=== PATIENT | male | born 1955 | race Caucasian/White ===

== ENCOUNTER → 2016-06-22 | Outpatient (CLI) | payer OTHER ==
[~2016-06-22] VITALS: Ht 167.6 cm; Wt 103.9 kg
[~2016-06-22] MED LIST: ACTOS15 MG PO; ADULT LOW DOSE81 MG PO; ALAVERT10 MG PO; ALBUTEROL INH; ALEVE220 M1 PO; AMARYL2 M1 PO; AMARYL4 MG PO; AMLODIPINE BESY10 MG PO; ASPIRIN PO; AVELOX400 MG PO; BACLOFEN 10MG T10 MG PO; BACLOFEN20 MG PO; BACTRIM DS TAB1 EACH PO; BUPRENORPHINE HC2 MG SL; CARAFATE 1 GM TA1 G1 PO; CARVEDILOL12.5 MG PO; CARVEDILOL25 MG PO; CHERACOL COUGH120 ML PO; CHLORTHALIDONE25 MG PO; CLEOCIN HCL300 MG PO; CLONIDINE0.1; CLONIDINE0.1 PO; CO Q-10100 MG PO; COLACE100 MG; COLCRYS0.6 MG PO; COQ-10100 MG PO; COREG25 MG PO; COREG6.25 MG PO; COZAAR100 MG PO; DAPSONE PO; DAPSONE25 MG PO; DIABETA PO; DIOVAN160 MG PO; DOXYCYCLINE 10100 MG PO; FENTANYL PA12 MCG/HR TP; FENTANYL PA25 MCG/HR TP; FISH OIL 1,001000 MG PO; FLEXERIL PO; GEMFIBROZIL 60600 MG PO; GLUCOPHAGE1000 MG PO; GLYBURIDE; GLYBURIDE 2.52.5 M1 PO; GLYBURIDE 5 MG T5 M1 PO; HYDRALAZINE 2525 M1 PO; HYDRALAZINE 2525 MG PO; HYDROCODON-ACE1 EAC5; HYDROXYCHLOROQ200 M1 PO; IBUPROFEN 200200 M1 PO; IBUPROFEN 800800 M1 PO; IMDUR 60 MG TAB60 M1 PO; IMDUR 60 MG TAB60 MG PO; INDOMETHACIN 5050 M1 PO; INDOMETHACIN 5050 MG PO; IRON325 PO; ISOSORBIDE DN 110 M1 PO; JANUVIA100 MG PO; K-DUR 20 MEQ T20 MEQ PO; KAPVAY0.1 MG PO; KETOCONAZOLE60 GM TP; LASIX 20 MG TAB20 MG PO; LASIX 40 MG TAB40 M1 PO; LASIX 40 MG TAB40 M2 PO; LASIX 40 MG TAB40 MG PO; LIORESAL 10 MG10 MG PO; LIPITOR20 MG PO; LIPITOR40 MG PO; LOPID600 MG PO; LORTAB 5 MG/5001 TA1 PO; MAGOX 400400 MG PO; MEDROLDOSEPACK PO; METFORMIN PO; MOBIC15 MG PO; NEURONTIN 300300 M1 PO; NEURONTIN 300M300 M2 PO; NEURONTIN 400400 M1 PO; NEURONTIN 400M400 M2 PO; NEURONTIN600 MG PO; NEURONTIN800 MG PO; NITROGLYCERIN0.4 MG SUBLING; NITROSTAT0.4 MG SUBLING; NORCO 5-325 TA1 EACH PO; NORVASC10 MG PO; NOVOLIN 70100 UNIT/1 IJ; ONDANSETRON HCL4 M2 PO; OPANA ER15 M1 PO; OPANA10 MG PO; OXYCONTIN CR 1010 M1; PEPCID AC20 M1 PO; PEPCID20 MG PO; PERCOCET 5-3251 EACH PO; PERCOCET 7.5-31 EACH PO; PHENERGAN25 MG RE; PLAVIX 75 MG TA75 M1 PO; PLAVIX 75 MG TA75 MG PO; PLAVIX PO; POTASSIUM20 PO; PREDNISONE 5 MG5 M1 PO; PREDNISONE 5 MG5 MG PO; PROTONIX40 M1 PO; PROVENTIL HFA6.7 G1 INH; RED YEAST RICE600 M1 PO; ROBAXIN 750 MG750 M1; ROXICODONE5 M2 PO; ROXICODONE5 MG PO; SIMVASTATIN40 MG PO; TIZANIDINE HCL4 MG PO; TORSEMIDE20 MG PO; TRAMADOL 50 MG50 MG PO; ULORIC40 MG PO; VICTOZA0.6 MG/0.1; VITAMIN D1000 UNI1 PO; VITAMIN D2000 UNIT PO; ZOFRAN 4 MG ORAL4 M1 DIS; ZOFRAN4 MG PO
--- NOTE | ~2016-06-22 | HPC ---
[facility] [address] [place] [address] PAIN MANAGEMENT CONSULTATION Name: JANNY CHEUNG Room #: REG LEIA RodriguezGiuliaLatasha.#: [id number] Admission: 06/22/16 Attend Phys: Aleksey Fairchild DO Discharge: Date of : 53 Report #: [id number] THIS REPORT FOR: //name// CC: Aleksey Kennedy MD DATE OF SERVICE: 06/22/2016 REFERRING PHYSICIAN: Norma Kennedy MD CHIEF COMPLAINT: Low back pain and upper buttock pain. HISTORY OF PRESENT ILLNESS: As you know, the patient is a 61-year-old male followed by pain associates with longstanding low back pain and bilateral upper buttock pain. He returns in followup visit for medication management. As you are aware, the patient has undergone extensive surgeries in the lumbar region, this provided little or no benefit. He returned to our clinic with bilateral SI joint pain for which we are continuing to treat. He returns today stating that the combination of medications are working fairly well for pain control giving a 6/10 pain level, exacerbated with movement, improves with medications, he describes the pain as chronic and aching in sensation. He returns for refills of medication. ALLERGIES: PENICILLIN, MORPHINE, DOXYCYCLINE, GLUTEN, BYETTA, and VICTOZA. CURRENT MEDICATIONS: Coenzyme Q, omega-3 fish oil, loratadine, nitroglycerin p.r.n., aspirin, hydralazine, Norvasc, Plavix, dapsone, iron, vitamin D3, magnesium oxide, Humalog, isosorbide dinitrate, tramadol, carvedilol, pantoprazole, atorvastatin, torsemide, sucralfate, and gabapentin. SOCIAL HISTORY: The patient denies current tobacco use. Denies IV or illicit drug use. Denies any chronic alcohol use. He is unaccompanied today. PHYSICAL EXAMINATION: VITAL SIGNS: Blood pressure 130/62, pulse 60, respiratory rate 18 and unlabored, the patient is 95% on room air, height 5 feet 6 inches tall, weight 229 pounds, and BMI calculated 37.0. GENERAL: Well-developed, well-nourished, well-hydrated, morbidly obese 61-year-old male, appears much older than stated age. He is placing current pain score at around 6/10. HEENT: Normocephalic, atraumatic. Pupils are equal, round, reactive to light. Extraocular muscles are intact. Speech fluent. EXTREMITIES: Show no clubbing, no cyanosis, and no edema. MUSCULOSKELETAL: Seated straight leg raising negative. Supine straight leg raising positive. Fabere's test is negative. For intrinsic hip pathology, [address] [address] PAIN MANAGEMENT CONSULTATION Name: JANNY CHEUNG Room #: REG [facility] Anabella.#: [id number] Admission: 06/22/16 Attend Phys: Aleksey Fairchild DO Discharge: Date of : 53 Report #: [id number] positive for SI joint pain. There is palpatory tenderness over the SI joint. Gait is antalgic. ASSESSMENT: 1. Chronic lumbar radiculopathy. 2. Bilateral sacroiliac joint dysfunction and subsequent pain. 3. Post lumbar fusion syndrome. 4. Chronic intractable pain. PLAN: 1. The patient returns today in followup visit with a pain score of around 6/10. The patient states that the medications provided for pain control are significant enough to provide improvement in symptoms. He does provide information today he was recently hospitalized for pneumonia, this took one week of hospitalization, he was just released 2 weeks ago. He states he is still feeling "punky from that experience." He returns today in followup visit requiring no injection therapies, requesting refills on medication at current dosing. He is denying any side effects to medication at this time. 2. The patient was provided a prescription of gabapentin 400 mg dose 2 tabs p.o. b.i.d., #120, release dates of today, 4 weeks from today, 8 weeks from today, 3 months' worth of medication. 3. The patient was provided a prescription of tizanidine 50 mg dose 2 tabs p.o. b.i.d., #120, release dates of today, 4 weeks from today, 8 weeks from today, 3 months' worth of medication. 4. The patient to return to our clinic in 3 months for medication therapy. He may return at anytime prior to that to undergo injection therapies once he is off his anticoagulants for 7 days. <ELECTRONICALLY SIGNED> By: Aleksey Fairchild DO 06/23/16 0743 [id number] [id number] Aleksey Fairchild DO /nt
[2016-06-22 12:59] VITALS: BP 130/62
== END ==
LOC: PAIN 07:24
DX: M54.16 Radiculopathy, lumbar region (principal); M53.3 Sacrococcygeal disorders, not elsewhere classified; G89.29 Other chronic pain; Z79.82 Long term (current) use of aspirin; I10 Essential (primary) hypertension; Z87.891 Personal history of nicotine dependence; Z79.4 Long term (current) use of insulin

== ENCOUNTER → 2017-02-22 | Outpatient (CLI) | payer OTHER ==
[~2017-02-22] VITALS: Ht 167.6 cm; Wt 99.8 kg
[~2017-02-22] MED LIST changes: +RANEXA500 MG PO; +ROBAXIN500 MG PO; +ZETIA10 MG PO
--- NOTE | ~2017-02-22 | HPC ---
[facility] [place] [address] PAIN MANAGEMENT CONSULTATION Name: JANNY CHEUNG Room #: REG [place] MGiulia.#: [id number] Admission: 02/22/17 Attend Phys: Aleksey Fairchild DO Discharge: Date of : 53 Report #: [id number] THIS REPORT FOR: //name// CC: Aleksey Kennedy MD DATE OF SERVICE: 02/22/2017 REFERRING PHYSICIAN: Norma Kennedy MD CHIEF COMPLAINT: Low back pain, upper buttock and posterolateral thigh pain. HISTORY OF PRESENT ILLNESS: As you know, the patient is a 62-year-old male who returns today in followup visit for medication management. The patient relays information today indicating he has been in and out of the hospital for the last 11 months. This is the longest timeframe he has been out of the hospital and that is only 7 weeks. He returns today in followup visit requesting a refill of medications stating medications are working beneficially. He is having some myofascial pain for which he wants to discuss the possibility of addition of a muscle relaxant. Today, the patient has had no changes in his back pain issues other than medications appear to be controlling symptoms. ALLERGIES: PENICILLIN, MORPHINE, CEPHALEXIN, DOXYCYCLINE, GLUTEN, BYETTA, VICTOZA. CURRENT MEDICATIONS: Zetia, Ranexa, tramadol, gabapentin, torsemide, atorvastatin, pantoprazole, carvedilol, isosorbide dinitrate, NovoLog, Lantus, magnesium oxide, cholecalciferol, ferrous sulfate, dapsone, Plavix, Norvasc, hydralazine, aspirin, nitroglycerin, loratadine, omega-3 fish oil, Coenzyme Q. SOCIAL HISTORY: The patient denies current tobacco use. Denies IV or illicit drug use. He is unaccompanied today. IMAGING: No new imaging available. PHYSICAL EXAMINATION: VITAL SIGNS: Blood pressure 132/60, pulse 58, respiratory rate 18 and unlabored, the patient is 96% on room air. Height 5 feet 6 inches tall, weight 220 pounds, BMI calculated at 35.5. GENERAL: Well-developed, well-nourished, well-hydrated, morbidly obese 62-year-old male. He appears his stated age, placing current pain score at 7/10. HEENT: Normocephalic, atraumatic. Pupils are equal, round, and reactive to light. EXTREMITIES: Show no clubbing, no cyanosis, [place] [address] PAIN MANAGEMENT CONSULTATION Name: JANNY CHEUNG Room #: REG [facility]#: [id number] Admission: 02/22/17 Attend Phys: Aleksey Fairchild DO Discharge: Date of : 53 Report #: [id number] MUSCULOSKELETAL: The patient is utilizing a roller walker for ambulation. His gait is wide based and forward flexed lumbar spine. Seated straight leg raising negative. Supine straight leg raising positive. ASSESSMENT: 1. Chronic lumbar radiculopathy. 2. Bilateral sacroiliac joint pain and dysfunction. 3. Post-lumbar fusion syndrome. 4. Chronic intractable pain. 5. Myofascial pain. PLAN: 1. The patient returns today in followup visit for medication management. He feels the combination of gabapentin and tramadol are working beneficially for pain control. He denies any side effects with their use. He requests refills of the medication be provided today. He has been appropriate with his medication, has not lost or called for early refills. 2. The patient was provided a prescription of tramadol 50 mg dose 2 tabs p.o. b.i.d. I have given the patient #120 releases for the next 4 months. 3. The patient was provided a prescription of gabapentin 400 mg tablets 2 tabs b.i.d., #120 with 3 refills, 4 months' worth of medication. 4. The patient is experiencing axial back pain mainly on the right side, appears to be myofascial in origin. The patient has tried muscle relaxants in the past, but has had difficulty with certain medications. He has not been trialled on Robaxin. We will try this medication today and determine if his symptoms might improve. I have given the patient Robaxin 500 mg dose 1 tab p.o. t.i.d., #90, 2 refills, 3 months' worth of medication. The patient was advised to watch for side effects of somnolence, decrease in mental acuity, disorientation and confusion while utilizing this medication. 5. We will see the patient back in followup visit 3 months from today to discuss options for treatment. By: 1300 [id number] Aleksey Fairchild DO /alfa
[2017-02-22 11:28] VITALS: BP 132/60
== END | disposition home or self-care (01) ==
LOC: PAIN 10-12 06:46
DX: Z76.0 Encounter for issue of repeat prescription (principal); M54.16 Radiculopathy, lumbar region; G89.29 Other chronic pain; M53.3 Sacrococcygeal disorders, not elsewhere classified; M43.26 Fusion of spine, lumbar region; M79.1 Myalgia; Z88.0 Allergy status to penicillin; Z88.6 Allergy status to analgesic agent; Z88.8 Allergy status to other drugs, medicaments and biological substances; Z79.4 Long term (current) use of insulin; Z79.899 Other long term (current) drug therapy; Z87.891 Personal history of nicotine dependence; Z79.82 Long term (current) use of aspirin